=== PATIENT | female | born 1995 | race African-American/Black ===

== ENCOUNTER 2018-02-06 01:24 | Observation (INO) | payer MEDICAID ==
[~2018-02-06] VITALS: Ht 170.2 cm; Wt 80.7 kg
[2018-02-06] MEDS ORDERED: ACETAMINOPHEN 500MG TABLET PO NR (02:15)
[2018-02-06] MEDS ORDERED: PNV1TABL76 MT (02:15)
== END 2018-02-06 03:50 | disposition home or self-care (01) ==
LOC: L&D 01:24
PROVIDERS: ADMIT Obstetrics & Gynecology; ATTEND Obstetrics & Gynecology
DX: O62.9 Abnormality of forces of labor, unspecified (principal); Z3A.39 39 weeks gestation of pregnancy
CPT/HCPCS: 99281; G0378